=== PATIENT | male | born 1965 | race Caucasian/White ===

== ENCOUNTER 2020-09-17 07:44 | Outpatient (CLI) | payer OTHER ==
[2020-09-17] MEDS ORDERED: OMEP20TA62 PO (10:40)
[2020-09-17] MEDS ORDERED: LOVA40TA2 PO (10:40)
[2020-09-17] MEDS ORDERED: MULT-449 PO (10:40)
[2020-09-17] MEDS ORDERED: CHOL10003 PO (10:40)
== END 2020-09-17 23:59 | disposition home or self-care (01) ==
LOC: STAR 07:44
PROVIDERS: ATTEND Urology
DX: Z20.822 Contact with and (suspected) exposure to COVID-19 (principal); N48.9 Disorder of penis, unspecified
CPT/HCPCS: U0003